=== PATIENT | female | born 1945 | race Caucasian/White ===

== ENCOUNTER 2020-02-10 08:58 | Outpatient (REF) | payer MEDICARE, SELFPAY ==
--- NOTE | 2020-02-10 09:43 | ECG_ITS ---
Test Reason : DIABETIC PRE OP Blood Pressure : / mmHG Vent. Rate : 055 BPM Atrial Rate : 055 BPM P-R Int : 164 ms QRS Dur : 084 ms QT Int : 440 ms P-R-T Axes : 046 049 042 degrees QTc Int : 420 ms Sinus bradycardia Otherwise normal ECG When compared with ECG of 21-APR-2017 11:20, Criteria for Inferior infarct are no longer Present ST elevation has replaced ST depression in Inferior leads T wave inversion no longer evident in Inferior leads Referred By: Johnie Horta Electronically Signed By:MARIIA MORRIS
[2020-02-10 10:17] LABS: Glucose Fasting 135 mg/dL (60-99)
== END 2020-02-10 08:59 | disposition home or self-care (01) ==
LOC: HO.LAB 08:58
PROVIDERS: PCP Family Medicine; Visit Provider Family Medicine
DX: Z01.812 Encounter for preprocedural laboratory examination (principal); E11.9 Type 2 diabetes mellitus without complications; I21.3 ST elevation (STEMI) myocardial infarction of unspecified site; R00.1 Bradycardia, unspecified
CPT/HCPCS: 36415; 82947; 93005; 93010

== ENCOUNTER → 2020-03-31 08:32 | Outpatient (BNVA) | payer MEDICARE, SELFPAY | PROVIDERS: PCP Family Medicine; Referring Provider Family Medicine; Visit Provider Psychiatry & Neurology Neurology | DX: G47.61 Periodic limb movement disorder (principal); G25.81 Restless legs syndrome | CPT/HCPCS: Q3014 ==